=== PATIENT | male | born 1965 | race Caucasian/White ===

== ENCOUNTER 2018-08-29 02:27 | Inpatient (IN) | payer OTHER ==
[~2018-08-29] VITALS: Ht 177.8 cm; Wt 90.7 kg
[2018-08-29 02:39] VITALS: Ht 177.8 cm; Wt 90.7 kg
[2018-08-29 03:46] LABS: BASOPHIL % 1.5 % (0-2); PLATELET COUNT 283 x10^3mcL (130-400); RED CELL DISTRIBUTION WIDTH 14.2 % (11.5-14.5)
[2018-08-29 03:51] LABS: CALCIUM 9.5 mg/dL (8.5-10.1); CARBON DIOXIDE 29.3 mmol/L (21-32); CHLORIDE SERUM 101 mmol/L (98-107); GFR1 > 60 mL/min; GLUCOSE SERUM 117 mg/dL (74-106); POTASSIUM SERUM 3.7 mmol/L (3.5-5.1); SODIUM SERUM 139 mmol/L (136-145)
[2018-08-29 03:56] LABS: ALKALINE PHOSPHATASE 83 U/L (46-116); ALT/SGPT 31 U/L (16-63); AST/SGOT 19 U/L (15-37); BILIRUBIN TOTAL 0.7 mg/dL (0.20-1.00); LIPASE 135 IU/L (73-393)
[2018-08-29 04:01] LABS: TOTAL PROTEIN, SERUM 8.6 g/dL (6.4-8.2)
[2018-08-29 09:00] VITALS: BP 106/65
[2018-08-29 17:18] VITALS: BP 112/83
[2018-08-29 18:21] VITALS: BP 112/83
== END 2018-08-29 19:25 | disposition home or self-care (01) | DRG 390 ==
LOC: ED 02:27 → MU 07:48
PROVIDERS: Emergency Medicine; ADMIT Internal Medicine Pulmonary Disease
DX: K56.7 Ileus, unspecified (principal); N20.0 Calculus of kidney; Z87.442 Personal history of urinary calculi
CPT/HCPCS: J2270; J2405; J7030; Q9967

== ENCOUNTER 2020-03-01 09:35 | Emergency (ER) | payer OTHER ==
[~2020-03-01] VITALS: Ht 330.2 cm; Wt 91.6 kg
[2020-03-01 09:46] VITALS: BP 134/81
== END 2020-03-01 12:09 | disposition home or self-care (01) ==
LOC: ED 09:35
DX: S40.012A Contusion of left shoulder, initial encounter (principal); M47.816 Spondylosis without myelopathy or radiculopathy, lumbar region; M54.2 Cervicalgia; Z87.442 Personal history of urinary calculi; V43.52XA Car driver injured in collision with other type car in traffic accident, initial encounter; Y93.I9 Activity, other involving external motion; Y92.488 Other paved roadways as the place of occurrence of the external cause; Y99.8 Other external cause status